=== PATIENT | female | born 1975 | race Caucasian/White ===

== ENCOUNTER 2018-10-10 10:22 | Emergency (ER) | payer MEDICAID ==
[~2018-10-10] VITALS: Ht 165.1 cm; Wt 55.3 kg
[2018-10-10 11:05] LABS: Basophils # (auto) 0 uL; Basophils % (auto) 0.8 % (0.0-2.0); Eosinophils # (auto) 0.1 uL; Eosinophils % (auto) 1.5 % (0.0-7.0); Hematocrit 39.2 % (36.0-46.0); Hemoglobin 13.3 g/dL (12.2-16.2); Lymphocytes # (auto) 1.6 uL; Lymphocytes % (auto) 26.7 % (10.0-50.0); Mean Corpuscular Hemoglobin 29.6 pg (28.0-32.0); Mean Corpuscular Volume 87.2 fL (80.0-100.0); Monocytes # (auto) 0.3 uL; Monocytes % (auto) 4.5 % (0.0-12.0); Neutrophils # (auto) 3.9 uL; Neutrophils % (auto) 66.5 % (37.0-80.0); Platelet Count (auto) 171 10^3/uL (140-450); Red Cell Distribution Width 13.2 % (11.8-14.3); White Blood Cell 5.9 10^3/uL (4.4-10.8)
[2018-10-10 11:21] LABS: Albumin 3.7 g/dL (3.4-5.0); Calcium 8.3 mg/dL (8.5-10.1); Magnesium 2.2 mg/dL (1.6-2.6); Potassium 3.6 mmol/L (3.5-5.1)
[2018-10-10 11:24] LABS: BUN/Creatinine Ratio 9.4; Bilirubin, Total 0.3 mg/dL (0.2-1.0); Total Protein 7.5 g/dL (6.4-8.2)
[2018-10-10 11:25] LABS: Urine Bacteria FEW /hpf (None Seen); Urine Blood Negative /uL (Negative); Urine Mucus FEW (None Seen); Urine Specific Gravity 1.013 (1.001-1.035); Urine WBC 12 /hpf (0 - 5)
[2018-10-10] MEDS ORDERED: LEVOFLOXACIN 500MG 100 ML IV ONE (12:00)
[2018-10-10] MEDS ORDERED: MORPHINE SULF INJ 2 MG/ML SYRINGE 1ML IV ONE (15:15)
[2018-10-10] MEDS ORDERED: ONDANSETRON HCL 4 MG/2 ML VIAL IV ONE (15:15)
[2018-10-10 17:21] VITALS: BP 118/65
== END 2018-10-10 17:50 | disposition short-term general hospital (02) ==
LOC: ER 10:30
DX: G93.0 Cerebral cysts (principal); J45.909 Unspecified asthma, uncomplicated; F12.90 Cannabis use, unspecified, uncomplicated; Z88.2 Allergy status to sulfonamides
CPT/HCPCS: 36415; 70450; 80053; 81001; 83735; 85025; 93005; 94761; 96365; 96375; 99285; J1956; J2270; J2405

== ENCOUNTER 2019-09-13 12:49 | Emergency (ER) | payer OTHER, MEDICAID ==
[~2019-09-13] VITALS: Ht 162.6 cm; Wt 43.1 kg
[2019-09-13 12:57] VITALS: BP 119/61
[2019-09-13] MEDS ORDERED: ACETAMINOPHEN 325 MG TAB PO ONE (14:00)
== END 2019-09-13 14:21 | disposition home or self-care (01) ==
LOC: ER 12:49
DX: S16.1XXA Strain of muscle, fascia and tendon at neck level, initial encounter (principal); R51 Headache; J45.909 Unspecified asthma, uncomplicated; Z88.2 Allergy status to sulfonamides; V43.62XA Car passenger injured in collision with other type car in traffic accident, initial encounter; Y93.89 Activity, other specified; Y92.488 Other paved roadways as the place of occurrence of the external cause; Y99.8 Other external cause status
CPT/HCPCS: 70450; 72040

== ENCOUNTER 2021-09-19 20:30 | Emergency (ER) | payer MEDICAID ==
[~2021-09-19] VITALS: Ht 165.1 cm; Wt 61.2 kg
[2021-09-19] MEDS ORDERED: HYDROmorphone HCL 2 MG/ML VL/or syr IM ONE (22:30)
[2021-09-19] MEDS ORDERED: ONDANSETRON HCL 4 MG/2 ML VIAL IM ONE (22:30)
[2021-09-20 01:08] VITALS: BP 128/52
== END 2021-09-20 01:17 | disposition home or self-care (01) ==
LOC: ER 20:30
DX: R51.9 Headache, unspecified (principal); J45.909 Unspecified asthma, uncomplicated; Z88.2 Allergy status to sulfonamides
CPT/HCPCS: 70450; 96372; 99284; J1170; J2405

== ENCOUNTER 2022-02-07 13:31 | Emergency (ER) | payer MEDICAID ==
[~2022-02-07] VITALS: Ht 165.1 cm; Wt 65.8 kg
[2022-02-07 13:58] VITALS: BP 121/75
[2022-02-07 14:31] LABS: Urine Bacteria FEW /hpf (None Seen); Urine Blood Negative /uL (Negative); Urine Hyaline Cast MOD /lpf (0 - 2); Urine Mucus FEW (None Seen); Urine Specific Gravity 1.028 (1.001-1.035); Urine WBC 13 /hpf (0 - 5)
[2022-02-07] MEDS ORDERED: ALBU108A5 IN (17:30)
[2022-02-07] MEDS ORDERED: MONT-8 PO (17:30)
[2022-02-07] MEDS ORDERED: PROM1SOL4 PO (17:30)
[2022-02-07] MEDS ORDERED: METH4PAK PO (17:30)
== END 2022-02-07 18:53 | disposition home or self-care (01) ==
LOC: ER 13:31
DX: J40 Bronchitis, not specified as acute or chronic (principal); F12.10 Cannabis abuse, uncomplicated; Z20.822 Contact with and (suspected) exposure to COVID-19
CPT/HCPCS: 36415; 81001; 87426; 87804